=== PATIENT | male | born 1975 | race Caucasian/White ===

== ENCOUNTER 2025-05-20 16:20 | Emergency (ER) | payer SELFPAY ==
[2025-05-20 16:21] VITALS: BP 141/82; PULSE 88; RESP 16; TEMP 35.8; O2SAT 99
[2025-05-20 17:05] VITALS: BMI 23.6
--- NOTE | 2025-05-20 17:19 | EDS_ITS ---
HPI HPI - Psych History of Present Illness Chief Complaint: Mental Health Detail of Chief Complaint: Abnormal behavior Informant: patient, family and friend Narrative Narrative: Patient presents to the emergency department concern for abnormal behavior. Police got involved when family and friend called police due to the fact the patient was speaking about very odd things like leaves turning colors and feeling like he is Nikhil Brandon. Patient states that he is a heavy marijuana smoker and when he is high he starts getting very paranoid. He has auditory and visual hallucinations. Denies feeling suicidal or homicidal. He was referred to the emergency department for evaluation. He has never been hospitalized for psychiatric issues in the past. He does have history of ADD as well as anxiety and depression but takes no medication. He also has history of hypertension but not medicated. He denies recent illness. Patient denies any other current drug use such as methamphetamines or opiates or cocaine. He does not drink alcohol. [facility] Medical History (Updated 05/20/25 @ 18:[address] Azalea Jiang, ) Ruptured disc, thoracic Allergy/AdvReac Type Severity Reaction Status Date / Time No Known Allergies Allergy Verified 05/20/25 16:21 Social History Smoking Status: Current some day smoker tobacco type: cigarettes and cigars ROS ROS ED Review of Systems ROS Unobtainable: other Constitutional Constitutional ED: Reports lethargy; Denies chills, fever(s), sweats or weight loss Eyes Eyes: Denies blurry vision, change in vision or diplopia ENT ENT ED: Denies rhinorrhea or sore throat Cardiovascular Cardiovascular: Reports chest pain and racing heartbeat; Denies orthopnea Respiratory/Chest Respiratory/Chest: Reports dyspnea and dyspnea on exertion; Denies cough, orthopnea or sputum Gastrointestinal Gastrointestinal: Denies abdominal pain, diarrhea, nausea or vomiting Genitourinary Genitourinary ED: Denies dysuria, hematuria or urinary frequency Musculoskeletal Musculoskeletal: Denies arthralgias, back pain, myalgias or neck pain Integumentary Denies abscess, Abrasions or rash Neurologic Neurologic: Denies headache(s) or weakness Psychiatric Psychiatric: Reports other Details: Hallucinations, paranoia ; Denies anxiety, depression or suicidal thoughts Endocrine Endocrinology: Denies polydipsia, polyphagia or polyuria Hematologic/Lymphatic Hematologic/Lymphatic: Denies easy bleeding, easy bruising or lymphadenopathy Allergic/Immunologic Allergic/Immunologic ED: Denies mouth swelling, tongue swelling or urticaria EXAM Physical Exam Const Vital Signs: 05/20/25 16:21 Temperature 96.4 F L Temperature Source Temporal Pulse Rate 88 Respiratory Rate 16 Blood Pressure 141/82 H Blood Pressure Mean 101 Pulse Ox 99 Oxygen Delivery Method Room Air Positive well nourished and well developed General Appearance ED: well developed and NAD HEENT Reports TM's clear and moist mucous membranes normocephalic and atraumatic; Negative for trauma or tenderness Tympanic Membrane ED: Yes TM's clear Eyes PERRL and EOMs intact bilaterally General Eye ED: Negative for pale conjunctiva or scleral icterus Neck no lymphadenopathy, supple and no JVD General: Negative for tenderness Chest Wall inspection of chest normal and palpation of chest normal Chest: Negative for tenderness Resp normal respiratory effort and clear to auscultation bilaterally Effort and Inspection: Negative for respiratory distress or pain with movement Auscultation: Negative for rhonchi, wheezes or diminished lung sounds Cardio regular rate, regular rhythm, S1 normal heart sound, S2 normal heart sound and no murmurs Peripheral Pulses: pulses 2+ throughout GI normal to inspection, nondistended, normoactive bowel sounds, soft to palpation, non-tender, non-distended and no masses Back/Spine no CVA tenderness and no thoracic nor lumbar tenderness Extremity normal to inspection General Extremety ED: Negative for edema General Extremity: Negative for edema Neuro oriented x3, CN's II-XII intact bilaterally, no sensory deficits noted and gait normal Sensorium / Orientation: awake, alert, oriented to person, oriented to place and oriented to time Motor Exam: strength 5/5 throughout and strength abnormal Psych mental status grossly normal Skin no rashes or lesions noted and no wounds MDM MDM MDM Narrative Medical decision making narrative: Patient brought to the emergency department by family members and friends concern for abnormal behavior. Concern for hallucinations and paranoia. Clinically looks well. Denies feeling suicidal or homicidal. Patient had mental health workup initiated including CBC with differential and chemistries that were unremarkable. LFTs were normal. Talk screen was positive for marijuana. Alcohol was negative. Patient was evaluated by crisis who agrees that patient would benefit from admission to psychiatric facility for diagnosis and stabilization of likely psychosis. Patient medically cleared. Lab Data Attestation: I reviewed the patient's lab results. Labs: Laboratory Results - last 24 hr 09/06/25 17:25 WBC 7.5 RBC 3.97 L Hgb 12.8 L Hct 36.6 L MCV 92.2 MCH 32.2 H MCHC 35.0 RDW Std Deviation 42.3 RDW Coeff of Rosalind 12.3 Plt Count 301 MPV 10.3 Immature Gran % (Auto) 0.400 Neut % (Auto) 67.3 Lymph % (Auto) 20.8 [place] % (Auto) 10.4 H Eos % (Auto) 0.7 Baso % (Auto) 0.4 Absolute Neuts (auto) 5.0 Absolute Lymphs (auto) 1.56 Nucleated RBC % 0 Sodium 138 Potassium 4.0 Chloride 101 Carbon Dioxide 25.6 Anion Gap 11 BUN 16 Creatinine 1.06 Estim Creat Clear Calc 91.76 Est GFR (MDRD) Non-Af 87 BUN/Creatinine Ratio 15.0 Glucose 136 H Calcium 9.7 Total Bilirubin 0.64 AST 29 ALT 26 Alkaline Phosphatase 55 Total Protein 6.8 Albumin 4.6 Globulin 2.2 Albumin/Globulin Ratio 2.1 Urine Opiates Screen NEGATIVE U Buprenorphine Qual NEGATIVE Ur Oxycodone Screen NEGATIVE Urine Methadone Screen NEGATIVE Urine Fentanyl Screen NEGATIVE Ur Barbiturates Screen NEGATIVE Ur Phencyclidine Scrn NEGATIVE Ur Amphetamines Screen NEGATIVE U Benzodiazepines Scrn NEGATIVE Urine Cocaine Screen NEGATIVE U Cannabinoids Screen PRESUMPTIVE POSITIVE Ethyl Alcohol < 10.1 Discharge Plan Triage Chief Complaint: Mental Health ED Provider: Azalea Jiang Dx/Rx/DC Orders Clinical Impression: Bizarre behavior, Psychosis, Cannabis abuse Primary Care Provider: Care Physician,No Primary Referrals: NOT,DEFINED [Non-Staff] - Print Language: Nepali Disposition Disposition: Psychiatric Hospital or Unit
[2025-05-20 17:38] LABS: Hematocrit 36.6 % (40-54); Hemoglobin 12.8 g/dL (13.0-16.5); Immature Granulocytes Count 0.030 X10^3/uL (0.0-0.0); Mean Corp Hgb Conc 35.0 g/dL (32-36); Mean Corpuscular Volume 92.2 fL (80-94); Mean Platelet Vol. 10.3 fl (6.2-12.0); NRBC Flagged by Analyzer 0 % (0-5); Platelet Count 301 K/mm3 (150-450); RBC Distribution Width CV 12.3 % (11.6-14.6); RBC Distribution Width SD 42.3 fl (35.1-43.9); Red Blood Count 3.97 M/mm3 (4.6-6.2); White Blood Count 7.5 K/mm3 (4.4-11.0)
[2025-05-20 17:58] LABS: AST(SGOT) 29 U/L (<=37); Alanine Aminotransfer ALT/SGPT 26 U/L (<=46); Albumin, Serum 4.6 g/dL (3.5-5.0); Alkaline Phosphatase 55 U/L (40-129); Anion Gap 11 (5-15); BUN 16 mg/dL (4-19); BUN/Creat Ratio 15.0 RATIO (10-20); Calcium,Total 9.7 mg/dL (7.6-11.0); Carbon Dioxide 25.6 mmol/L (21.0-32.0); Chloride 101 mmol/L (98-108); Estimated Creatinine Clearance 91.76 ml/min (50-250); Globulin 2.2 g/dL (2.2-4.2); Glucose 136 mg/dL (70-99); Potassium 4.0 mmol/L (3.3-5.1)
[2025-05-20 18:03] LABS: Barbiturate Urine NEGATIVE (< 200 ng/mL); Benzodiazepine Urine NEGATIVE (< 200 ng/mL); PCP Urine NEGATIVE (< 25 ng/mL); THC Urine PRESUMPTIVE POSITIVE (< 50 ng/mL)
[2025-05-20 18:14] LABS: Alcohol, Blood (Medical)-Serum < 10.1 mg/dL (<=10.0)
[2025-05-20 18:36] VITALS: BP 124/72; PULSE 70; RESP 18; O2SAT 98
[2025-05-20 20:00] VITALS: BP 124/82; PULSE 68; O2SAT 97
[2025-05-20 22:00] VITALS: PULSE 73; O2SAT 99
[2025-05-20 22:14] VITALS: BP 139/103; PULSE 72; RESP 16; O2SAT 99
--- NOTE | 2025-05-21 01:44 | EKG12_ITS ---
Test Reason : [facility] Blood Pressure : */* mmHG Vent. Rate : 60 BPM Atrial Rate : 60 BPM P-R Int : 152 ms QRS Dur : 80 ms QT Int : 418 ms P-R-T Axes : 32 77 71 degrees QTcB Int : 418 ms Normal sinus rhythm Normal ECG Confirmed by Reyes Lee ([id number]), senior technical editor JAMAR KUO ([id number]) on 05/22/2025 9:48:18 AM Referred By: Confirmed By: Reyes Lee
[2025-05-21 05:45] VITALS: BP 156/94; PULSE 76; RESP 16; O2SAT 98
--- NOTE | 2025-05-21 06:21 | PCA ---
vania mata called pt is referred to [facility].
--- NOTE | 2025-05-21 08:22 | PCA ---
THIS CORN PRESS OPERATOR CALLED [facility] IS WORKING TODAY. WE DISCUSSED A THE SOURCE OF RESIDENT APPROVAL FOR PT FROM [facility]. PT OBTAINED AN [employer] RECEIPT WITH HIS ADDRESS INFORMATION. HOWEVER, [facility] SPOKE TO [facility] IN [facility] AND THEY SAID THEY WON'T ACCEPT THAT. JACEK FROM [facility] IS WORKING ON [employer] TO PROVIDE RESIDENTS. FOR NOW, AIMING FOR ACCEPTANCE AT [facility]
--- NOTE | 2025-05-21 13:33 | PCA ---
THIS NUCLEAR RADIATION ENGINEER RECIEVED A CALL FROM [facility] FROM CRISIS. HE GAVE ACCEPTING INFORMATION FOR PT, GOING TO [facility], TO [facility] [address], [address]: [phone]. THIS NUCLEAR RADIATION ENGINEER CALLED [facility], ETA FOR TRANSPORT IS [phone]
[2025-05-21 13:51] VITALS: BP 126/71; PULSE 65; O2SAT 100
--- NOTE | 2025-05-21 14:13 | CM.ED ---
Social Work Date of referral: 05/21/25 Reason for referral: To assist Crisis with placement for patient. Referred by: Charge Nurse Patient provided consent for Social Work visit. 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 Patient continues to live at home with his and is in the process of taking steps to try and move out as patient stated he and his are no longer in love and all need to move on. Patient has a friend he is able to stay with until he is able to get back on his feet. Patient described a positive relationship with his daughter who will be stopping by later on this date to visit with patient. Manager People began to discuss different forms of documentation needed for proof of residency. 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 (9:39) Manager People made phone contact with Smith from [facility] and asked him to get a hold of [facility] to get a list of acceptable forms of identification to prove residency. (9:44) Smith from [facility] returned call to marriage and family social worker and stated [facility] will accept any mail with patient's name and address on it (9:52) Manager People met with patient and will have his e-mail marriage and family social worker a copy of mail from his insurance and will e-mail a copy of the lease agreement. Patient's daughter will also bring in a hard copy of documentation if needed. (10:00) Jud from [facility] met with marriage and family social worker in person, marriage and family social worker received all required documentation from patient's via e-mail and marriage and family social worker forwarded all information to Smith with [facility]. Jud to go in and speak with patient and to also let patient know that all documentation was received and has been passed along (10:41) Manager People received a call from Smith with [facility] who stated [facility] has accepted the paperwork as proof as residency, has approved a single case agreement and is contracted with [facility], [facility] and [facility]. Smith is sending all paperwork to all three places seeking acceptance for placement. (12:55) Manager People updated charge nurse and patient. (13:04) Manager People saw in documentation that patient has been accepted to [facility] so Manager People updated patient and patient's daughter and provided them with a handout for [facility] which both accepted and expressed appreciation for. (14:13) Monserrat De La Cruz, GAMING DEALER, FOREIGN LANGUAGE TEACHER
--- NOTE | 2025-05-21 17:44 | PCA ---
Called [facility] @[phone], spoke to Bess. ETA is now [phone], this magnetic resonance technologist asked if that is accurate as ride had been pushed back several times already. They stated they can't assure that, but it is the most up to date time the dispatch could give them. Meal mayi ordered for pt after being aware of delay.
[2025-05-21 18:41] VITALS: BP 126/71; PULSE 65; RESP 16; TEMP 35.8; O2SAT 100
--- NOTE | 2025-05-21 19:00 | ED.RN ---
attempt to call report to nurse at [facility]. no answer at this time. will attempt again
== END 2025-05-21 18:53 ==
PROVIDERS: Emergency Provider Emergency Medicine; Visit Provider Emergency Medicine
DX: F29 Unspecified psychosis not due to a substance or known physiological condition (principal); F12.10 Cannabis abuse, uncomplicated; I10 Essential (primary) hypertension; F41.9 Anxiety disorder, unspecified; F32.A Depression, unspecified; F17.210 Nicotine dependence, cigarettes, uncomplicated; F17.290 Nicotine dependence, other tobacco product, uncomplicated; R07.9 Chest pain, unspecified; R06.09 Other forms of dyspnea
CPT/HCPCS: 80053; 80307; 82077; 85025; 93005; 99283